=== PATIENT | male | born 1990 | race Caucasian/White ===

== ENCOUNTER 2021-03-10 13:27 | Inpatient (IN) | payer OTHER ==
[~2021-03-10] VITALS: Ht 172.7 cm; Wt 64.0 kg
[2021-03-10 15:30] VITALS: BP 113/68
[2021-03-10] MEDS: HEPARIN SODIUM,PORCINE 5,000 UNITS/ML VIAL SQ SCH ×2 (16:45→21:01)
[2021-03-10] MEDS: IBUPROFEN 800 MG TABLET PO PRN (16:45)
[2021-03-10] MEDS: OxyCODONE HCL 5 MG IR TABLET PO PRN (19:27)
[2021-03-10] MEDS: DOCUSATE SODIUM 100 MG CAPSULE PO SCH (21:00)
[2021-03-10] MEDS: SENNA 187 MG TABLET PO SCH (21:00)
[2021-03-10] MEDS: ETHYL ALCOHOL 62% ANTISEPTIC NASAL INHALANT 0.6 ML AMPUL NASAL SCH (21:01)
[2021-03-10] MEDS: FAMOTIDINE 20 MG TABLET PO SCH (21:01)
[2021-03-11] VITALS: BP 109/70
[2021-03-11] MEDS: OxyCODONE HCL 5 MG IR TABLET PO PRN ×4 (03:16→21:27)
[2021-03-11 07:00] LABS: EOSINOPHILS % (AUTO) 2.9 % (1.0-6.0); HEMATOCRIT 42.6 % (41-53); HEMOGLOBIN 15.1 g/dL (13.5-17.5); LYMPHOCYTES # (AUTO) 1.6 K/uL (1.0-4.8); LYMPHOCYTES % (AUTO) 33.1 % (22.0-44.0); MEAN CORPUSCULAR HEMOGLOBIN 30.7 pg (26.0-34.0); MEAN CORPUSCULAR HGB CONC 35.4 G/dL (31.0-37.0); MEAN CORPUSCULAR VOLUME 87 fL (80-100); MONOCYTES # (AUTO) 0.5 K/uL (0.1-1.0); MONOCYTES % (AUTO) 11.4 % (2.0-9.0); NEUTROPHILS # (AUTO) 2.4 K/uL (1.8-7.7); NEUTROPHILS % (AUTO) 51.6 % (40.0-70.0); PLATELET COUNT (AUTO) 149 K/uL (150-450); RED BLOOD CELL COUNT(AUTO) 4.91 MIL/uL (4.50-5.90)
[2021-03-11 07:20] LABS: ALANINE AMINOTRANSFERASE 17 U/L (12-78); ALBUMIN 3.6 g/dL (3.4-5.0); ALKALINE PHOSPHATASE 77 U/L (46-116); ANION GAP 4 mmol/L (8-16); ASPARTATE AMINOTRANSFERASE 15 U/L (15-37); BILIRUBIN,TOTAL 0.5 mg/dL (0.1-1.0); CALCIUM, TOTAL 9.3 mg/dL (8.8-10.5); CARBON DIOXIDE 29 mmol/L (22-29); CHLORIDE 102 mmol/L (98-107); GLOMERULAR FILTR. RATE CALC > 60 mL/min (>60); GLUCOSE,RANDOM 105 mg/dL (70-110); POTASSIUM 4.6 mmol/L (3.5-5.1); SODIUM SERUM 135 mmol/L (136-145); TOTAL PROTEIN, SERUM 7.3 g/dL (6.4-8.2); UREA NITROGEN, BLOOD 13 mg/dL (7-18)
[2021-03-11 08:25] VITALS: BP 113/61
[2021-03-11] MEDS: HEPARIN SODIUM,PORCINE 5,000 UNITS/ML VIAL SQ SCH ×3 (08:26→20:38)
[2021-03-11] MEDS: ETHYL ALCOHOL 62% ANTISEPTIC NASAL INHALANT 0.6 ML AMPUL NASAL SCH ×2 (08:26→20:38)
[2021-03-11] MEDS: FAMOTIDINE 20 MG TABLET PO SCH ×2 (08:26→20:38)
[2021-03-11] MEDS: DOCUSATE SODIUM 100 MG CAPSULE PO SCH ×2 (08:26→20:38)
[2021-03-11] MEDS: NICOTINE 7 MG/24 HOUR PATCH TD SCH (08:27)
[2021-03-11] MEDS ORDERED: SODIUM CHLORIDE 0.9% 100 ML ONE (12:24)
[2021-03-11] MEDS: CeFAZolin 2 GM/DEXTROSE 50 ML IV SCH ×2 (13:00→20:38)
[2021-03-11 16:11] VITALS: BP 123/78
[2021-03-11] MEDS: IBUPROFEN 800 MG TABLET PO PRN (16:11)
[2021-03-11] MEDS: SENNA 187 MG TABLET PO SCH (20:38)
[2021-03-11] MEDS: MELATONIN 5 MG TABLET PO PRN (20:48)
[2021-03-12] VITALS: BP 131/72
[2021-03-12] MEDS: CeFAZolin 2 GM/DEXTROSE 50 ML IV SCH ×3 (03:46→21:26)
[2021-03-12] MEDS: NICOTINE 7 MG/24 HOUR PATCH TD SCH (08:28)
[2021-03-12] MEDS: DOCUSATE SODIUM 100 MG CAPSULE PO SCH ×3 (08:28→21:22)
[2021-03-12] MEDS: FAMOTIDINE 20 MG TABLET PO SCH ×2 (08:28→21:25)
[2021-03-12] MEDS: HEPARIN SODIUM,PORCINE 5,000 UNITS/ML VIAL SQ SCH ×3 (08:28→21:25)
[2021-03-12 08:29] VITALS: BP 109/59
[2021-03-12] MEDS: OxyCODONE HCL 5 MG IR TABLET PO PRN (08:29)
[2021-03-12] MEDS: ETHYL ALCOHOL 62% ANTISEPTIC NASAL INHALANT 0.6 ML AMPUL NASAL SCH ×2 (08:29→21:26)
[2021-03-12] MEDS: IBUPROFEN 800 MG TABLET PO PRN (15:37)
[2021-03-12 16:40] VITALS: BP 110/65
[2021-03-12] MEDS: SENNA 187 MG TABLET PO SCH ×2 (21:00→21:23)
[2021-03-12] MEDS: OxyCODONE HCL 10 MG ER TABLET PO SCH (21:26)
[2021-03-13 00:57] VITALS: BP 117/68
[2021-03-13 08:02] VITALS: BP 107/69
[2021-03-13] MEDS: FAMOTIDINE 20 MG TABLET PO SCH ×2 (08:32→20:36)
[2021-03-13] MEDS: ETHYL ALCOHOL 62% ANTISEPTIC NASAL INHALANT 0.6 ML AMPUL NASAL SCH ×2 (08:32→20:36)
[2021-03-13] MEDS: DOCUSATE SODIUM 100 MG CAPSULE PO SCH ×2 (08:32→20:36)
[2021-03-13] MEDS: HEPARIN SODIUM,PORCINE 5,000 UNITS/ML VIAL SQ SCH ×3 (08:32→20:36)
[2021-03-13] MEDS: OxyCODONE HCL 10 MG ER TABLET PO SCH ×2 (08:36→20:46)
[2021-03-13] MEDS: NICOTINE 7 MG/24 HOUR PATCH TD SCH (09:00)
[2021-03-13 15:20] VITALS: BP 109/60
[2021-03-13] MEDS: IBUPROFEN 800 MG TABLET PO PRN (15:20)
[2021-03-13] MEDS: SENNA 187 MG TABLET PO SCH (20:36)
[2021-03-14 00:17] VITALS: BP 112/54
[2021-03-14] MEDS ORDERED: OXYC10TA59 PO (02:03)
[2021-03-14] MEDS ORDERED: NICO-800 TD (02:03)
[2021-03-14] MEDS ORDERED: FAMO20 PO (02:03)
[2021-03-14] MEDS ORDERED: SENN8.6T90 PO (02:03)
[2021-03-14] MEDS ORDERED: DOCU-270 PO (02:03)
[2021-03-14 08:05] VITALS: BP 122/71
[2021-03-14] MEDS: OxyCODONE HCL 10 MG ER TABLET PO SCH ×3 (08:20→20:12)
[2021-03-14] MEDS: DOCUSATE SODIUM 100 MG CAPSULE PO SCH ×2 (08:20→20:11)
[2021-03-14] MEDS: ETHYL ALCOHOL 62% ANTISEPTIC NASAL INHALANT 0.6 ML AMPUL NASAL SCH ×2 (08:20→20:11)
[2021-03-14] MEDS: HEPARIN SODIUM,PORCINE 5,000 UNITS/ML VIAL SQ SCH (08:20)
[2021-03-14] MEDS: FAMOTIDINE 20 MG TABLET PO SCH ×2 (08:20→20:12)
[2021-03-14] MEDS: NICOTINE 7 MG/24 HOUR PATCH TD SCH (08:21)
[2021-03-14 16:32] VITALS: BP 116/59
[2021-03-14] MEDS: SENNA 187 MG TABLET PO SCH (20:11)
[2021-03-14] MEDS: MELATONIN 5 MG TABLET PO PRN (20:12)
[2021-03-15] VITALS: BP 112/58
[2021-03-15] MEDS: ETHYL ALCOHOL 62% ANTISEPTIC NASAL INHALANT 0.6 ML AMPUL NASAL SCH ×2 (09:00→21:29)
[2021-03-15] MEDS: OxyCODONE HCL 10 MG ER TABLET PO SCH ×2 (09:00→21:28)
[2021-03-15] MEDS: DOCUSATE SODIUM 100 MG CAPSULE PO SCH ×2 (09:00→21:29)
[2021-03-15] MEDS: FAMOTIDINE 20 MG TABLET PO SCH ×2 (09:00→21:29)
[2021-03-15] MEDS: NICOTINE 7 MG/24 HOUR PATCH TD SCH (09:00)
[2021-03-15 21:28] VITALS: BP 119/68
[2021-03-15] MEDS: SENNA 187 MG TABLET PO SCH (21:29)
[2021-03-16 00:12] VITALS: BP 129/73
[2021-03-16] MEDS: OxyCODONE HCL 5 MG IR TABLET PO PRN ×3 (00:12→19:55)
[2021-03-16] MEDS: MELATONIN 5 MG TABLET PO PRN ×2 (00:12→23:56)
[2021-03-16] MEDS: DOCUSATE SODIUM 100 MG CAPSULE PO SCH ×2 (07:58→21:25)
[2021-03-16] MEDS: FAMOTIDINE 20 MG TABLET PO SCH ×2 (07:58→21:25)
[2021-03-16] MEDS: ASPIRIN 325 MG TABLET PO SCH (07:58)
[2021-03-16] MEDS: OxyCODONE HCL 10 MG ER TABLET PO SCH ×2 (07:58→21:25)
[2021-03-16] MEDS: NICOTINE 7 MG/24 HOUR PATCH TD SCH (07:59)
[2021-03-16] MEDS: ETHYL ALCOHOL 62% ANTISEPTIC NASAL INHALANT 0.6 ML AMPUL NASAL SCH ×2 (07:59→21:24)
[2021-03-16 09:14] VITALS: BP 102/71
[2021-03-16] MEDS: ACETAMINOPHEN 325 MG TABLET PO PRN (13:00)
[2021-03-16 15:50] VITALS: BP 123/77
[2021-03-16] MEDS: OxyCODONE HCL 10 MG IR TABLET PO PRN ×2 (17:11→23:55)
[2021-03-16] MEDS: SENNA 187 MG TABLET PO SCH (21:25)
[2021-03-17 00:01] VITALS: BP 135/80
[2021-03-17] MEDS: OxyCODONE HCL 5 MG IR TABLET PO PRN (03:58)
[2021-03-17] MEDS: ACETAMINOPHEN 325 MG TABLET PO PRN (06:00)
[2021-03-17 06:19] LABS: BASOPHILS % (AUTO) 0.6 % (0.0-2.0); EOSINOPHILS % (AUTO) 2.6 % (1.0-6.0); HEMATOCRIT 40.4 % (41-53); HEMOGLOBIN 13.7 g/dL (13.5-17.5); LYMPHOCYTES # (AUTO) 1.8 K/uL (1.0-4.8); LYMPHOCYTES % (AUTO) 24.3 % (22.0-44.0); MEAN CORPUSCULAR VOLUME 88 fL (80-100); MONOCYTES % (AUTO) 13.5 % (2.0-9.0); NEUTROPHILS # (AUTO) 4.4 K/uL (1.8-7.7); PLATELET COUNT (AUTO) 190 K/uL (150-450); RED BLOOD CELL COUNT(AUTO) 4.57 MIL/uL (4.50-5.90); RED CELL DISTRIBUTION WIDTH 14.4 % (11.5-14.5)
[2021-03-17 06:23] LABS: ANION GAP 7 mmol/L (8-16); CALCIUM, TOTAL 9.5 mg/dL (8.8-10.5); CARBON DIOXIDE 29 mmol/L (22-29); CHLORIDE 104 mmol/L (98-107); CREATININE 0.92 mg/dL (0.60-1.30); GLOMERULAR FILTR. RATE CALC > 60 mL/min (>60); GLUCOSE,RANDOM 107 mg/dL (70-110); POTASSIUM 4.1 mmol/L (3.5-5.1); SODIUM SERUM 140 mmol/L (136-145); UREA NITROGEN, BLOOD 11 mg/dL (7-18)
[2021-03-17] MEDS: NICOTINE 7 MG/24 HOUR PATCH TD SCH (08:05)
[2021-03-17] MEDS: DOCUSATE SODIUM 100 MG CAPSULE PO SCH (08:06)
[2021-03-17] MEDS: FAMOTIDINE 20 MG TABLET PO SCH ×2 (08:06→22:10)
[2021-03-17] MEDS: OxyCODONE HCL 10 MG ER TABLET PO SCH ×2 (08:06→22:10)
[2021-03-17] MEDS: ASPIRIN 325 MG TABLET PO SCH (08:06)
[2021-03-17] MEDS: ETHYL ALCOHOL 62% ANTISEPTIC NASAL INHALANT 0.6 ML AMPUL NASAL SCH ×2 (08:08→22:10)
[2021-03-17 09:00] VITALS: BP 108/67
[2021-03-17] MEDS: OxyCODONE HCL 10 MG IR TABLET PO PRN ×2 (11:12→19:53)
[2021-03-17] MEDS ORDERED: OxyCODONE HCL 5 MG IR TABLET PO PRN (11:15)
[2021-03-17] MEDS ORDERED: NALOXONE HCL 0.4 MG/ML VIAL IVP PRN (12:45)
[2021-03-17] MEDS: ONDANSETRON HCL 4 MG TABLET PO PRN ×2 (13:15→22:10)
[2021-03-17 16:02] VITALS: BP 130/75
[2021-03-17] MEDS: SENNA 187 MG TABLET PO SCH (22:10)
[2021-03-17] MEDS: DOCUSATE SODIUM 250 MG CAPSULE PO SCH (22:10)
[2021-03-18 01:16] VITALS: BP 142/87
[2021-03-18] MEDS: OxyCODONE HCL 10 MG IR TABLET PO PRN ×2 (01:30→08:47)
[2021-03-18 08:30] VITALS: BP 129/65
[2021-03-18] MEDS: ETHYL ALCOHOL 62% ANTISEPTIC NASAL INHALANT 0.6 ML AMPUL NASAL SCH ×2 (08:47→20:22)
[2021-03-18] MEDS: FAMOTIDINE 20 MG TABLET PO SCH ×2 (08:48→20:22)
[2021-03-18] MEDS: ASPIRIN 325 MG TABLET PO SCH (08:48)
[2021-03-18] MEDS: DOCUSATE SODIUM 250 MG CAPSULE PO SCH ×2 (08:48→20:22)
[2021-03-18] MEDS: NICOTINE 7 MG/24 HOUR PATCH TD SCH (08:54)
[2021-03-18] MEDS: OxyCODONE HCL 10 MG ER TABLET PO SCH ×2 (10:29→20:22)
[2021-03-18] MEDS: ONDANSETRON HCL 4 MG TABLET PO PRN (11:34)
[2021-03-18 18:01] VITALS: BP 126/75
[2021-03-18] MEDS: SENNA 187 MG TABLET PO SCH (20:24)
[2021-03-18] MEDS ORDERED: SENNA 187 MG TABLET PO SCH (21:00)
[2021-03-18] MEDS: MELATONIN 5 MG TABLET PO PRN (23:39)
[2021-03-19] VITALS: BP 124/67
[2021-03-19] MEDS: DOCUSATE SODIUM 250 MG CAPSULE PO SCH ×2 (08:26→21:00)
[2021-03-19] MEDS: OxyCODONE HCL 10 MG ER TABLET PO SCH ×2 (08:26→21:41)
[2021-03-19] MEDS: NICOTINE 7 MG/24 HOUR PATCH TD SCH (08:26)
[2021-03-19] MEDS: ASPIRIN 325 MG TABLET PO SCH (08:26)
[2021-03-19] MEDS: ETHYL ALCOHOL 62% ANTISEPTIC NASAL INHALANT 0.6 ML AMPUL NASAL SCH ×2 (08:29→21:42)
[2021-03-19] MEDS: FAMOTIDINE 20 MG TABLET PO SCH ×2 (08:29→21:41)
[2021-03-19 10:00] VITALS: BP 117/65
[2021-03-19 16:30] VITALS: BP 125/74
[2021-03-19] MEDS: ACETAMINOPHEN 325 MG TABLET PO PRN (19:44)
[2021-03-19] MEDS: SENNA 187 MG TABLET PO SCH (21:00)
[2021-03-19] MEDS: MELATONIN 5 MG TABLET PO PRN (21:41)
[2021-03-20 05:25] VITALS: BP 95/57
[2021-03-20] MEDS: DOCUSATE SODIUM 250 MG CAPSULE PO SCH ×3 (09:00→20:43)
[2021-03-20] MEDS: NICOTINE 7 MG/24 HOUR PATCH TD SCH (09:00)
[2021-03-20 09:15] VITALS: BP 115/63
[2021-03-20] MEDS: ASPIRIN 325 MG TABLET PO SCH (09:50)
[2021-03-20] MEDS: OxyCODONE HCL 10 MG ER TABLET PO SCH ×2 (09:51→20:31)
[2021-03-20] MEDS: FAMOTIDINE 20 MG TABLET PO SCH ×2 (09:51→20:32)
[2021-03-20] MEDS: ETHYL ALCOHOL 62% ANTISEPTIC NASAL INHALANT 0.6 ML AMPUL NASAL SCH ×2 (09:51→20:31)
[2021-03-20] MEDS: ACETAMINOPHEN 325 MG TABLET PO PRN (15:28)
[2021-03-20 16:01] VITALS: BP 118/62
[2021-03-20 16:28] VITALS: BP 109/53
[2021-03-20] MEDS: SENNA 187 MG TABLET PO SCH ×2 (20:32→20:43)
[2021-03-20] MEDS: MELATONIN 5 MG TABLET PO PRN (23:14)
[2021-03-20 23:58] VITALS: BP 115/71
[2021-03-21 00:32] VITALS: BP 115/71
[2021-03-21] MEDS: NICOTINE 7 MG/24 HOUR PATCH TD SCH (08:09)
[2021-03-21] MEDS: ASPIRIN 325 MG TABLET PO SCH (08:10)
[2021-03-21] MEDS: FAMOTIDINE 20 MG TABLET PO SCH ×2 (08:11→20:48)
[2021-03-21] MEDS: DOCUSATE SODIUM 250 MG CAPSULE PO SCH ×2 (08:11→20:47)
[2021-03-21] MEDS: OxyCODONE HCL 10 MG ER TABLET PO SCH ×2 (08:11→20:48)
[2021-03-21] MEDS: ETHYL ALCOHOL 62% ANTISEPTIC NASAL INHALANT 0.6 ML AMPUL NASAL SCH ×2 (08:12→20:47)
[2021-03-21 09:30] VITALS: BP 127/76
[2021-03-21] MEDS: ACETAMINOPHEN 325 MG TABLET PO PRN (15:39)
[2021-03-21 16:20] VITALS: BP 120/57
[2021-03-21] MEDS: SENNA 187 MG TABLET PO SCH (20:47)
[2021-03-21] MEDS: MELATONIN 5 MG TABLET PO PRN (23:14)
[2021-03-22] VITALS: BP 135/73
[2021-03-22] MEDS: ASPIRIN 325 MG TABLET PO SCH (08:34)
[2021-03-22] MEDS: NICOTINE 7 MG/24 HOUR PATCH TD SCH (08:34)
[2021-03-22] MEDS: DOCUSATE SODIUM 250 MG CAPSULE PO SCH ×3 (08:34→20:33)
[2021-03-22] MEDS: FAMOTIDINE 20 MG TABLET PO SCH ×2 (08:35→20:33)
[2021-03-22] MEDS: ETHYL ALCOHOL 62% ANTISEPTIC NASAL INHALANT 0.6 ML AMPUL NASAL SCH ×2 (08:35→20:32)
[2021-03-22] MEDS: OxyCODONE HCL 10 MG ER TABLET PO SCH ×2 (08:35→20:33)
[2021-03-22 10:00] VITALS: BP 111/70
[2021-03-22 16:00] VITALS: BP 128/76
[2021-03-22] MEDS: SENNA 187 MG TABLET PO SCH ×2 (20:33→20:37)
[2021-03-22] MEDS: MELATONIN 5 MG TABLET PO PRN (22:05)
[2021-03-23 04:23] VITALS: BP 123/64
[2021-03-23 08:02] VITALS: BP 95/48
[2021-03-23] MEDS: FAMOTIDINE 20 MG TABLET PO SCH ×2 (08:26→21:31)
[2021-03-23] MEDS: ASPIRIN 325 MG TABLET PO SCH (08:26)
[2021-03-23] MEDS: OxyCODONE HCL 10 MG ER TABLET PO SCH ×2 (08:26→21:31)
[2021-03-23] MEDS: DOCUSATE SODIUM 250 MG CAPSULE PO SCH ×2 (08:26→21:31)
[2021-03-23] MEDS: NICOTINE 7 MG/24 HOUR PATCH TD SCH (08:27)
[2021-03-23] MEDS: ETHYL ALCOHOL 62% ANTISEPTIC NASAL INHALANT 0.6 ML AMPUL NASAL SCH ×2 (08:29→21:31)
[2021-03-23] MEDS: OxyCODONE HCL 10 MG IR TABLET PO PRN (14:21)
[2021-03-23 14:56] VITALS: BP 120/79
[2021-03-23] MEDS: SENNA 187 MG TABLET PO SCH (21:00)
[2021-03-24 06:00] VITALS: BP 114/62
[2021-03-24] MEDS: ASPIRIN 325 MG TABLET PO SCH (08:17)
[2021-03-24] MEDS: OxyCODONE HCL 10 MG ER TABLET PO SCH ×2 (08:17→21:08)
[2021-03-24] MEDS: DOCUSATE SODIUM 250 MG CAPSULE PO SCH ×2 (08:17→21:09)
[2021-03-24] MEDS: ETHYL ALCOHOL 62% ANTISEPTIC NASAL INHALANT 0.6 ML AMPUL NASAL SCH ×2 (08:17→21:09)
[2021-03-24] MEDS: FAMOTIDINE 20 MG TABLET PO SCH ×2 (08:18→21:07)
[2021-03-24] MEDS: NICOTINE 7 MG/24 HOUR PATCH TD SCH (08:22)
[2021-03-24 08:30] VITALS: BP 107/62
[2021-03-24 16:00] VITALS: BP 126/73
[2021-03-24] MEDS: SENNA 187 MG TABLET PO SCH (21:00)
[2021-03-25] MEDS: ETHYL ALCOHOL 62% ANTISEPTIC NASAL INHALANT 0.6 ML AMPUL NASAL SCH ×2 (07:49→19:55)
[2021-03-25] MEDS: ASPIRIN 325 MG TABLET PO SCH (07:49)
[2021-03-25] MEDS: FAMOTIDINE 20 MG TABLET PO SCH ×2 (07:50→19:55)
[2021-03-25] MEDS: OxyCODONE HCL 10 MG ER TABLET PO SCH ×2 (07:54→19:56)
[2021-03-25] MEDS: DOCUSATE SODIUM 250 MG CAPSULE PO SCH ×2 (07:54→19:56)
[2021-03-25] MEDS: NICOTINE 7 MG/24 HOUR PATCH TD SCH (07:55)
[2021-03-25 08:00] VITALS: BP 126/57
[2021-03-25 17:00] VITALS: BP 124/79
[2021-03-25] MEDS: SENNA 187 MG TABLET PO SCH (19:56)
[2021-03-25] MEDS: ACETAMINOPHEN 325 MG TABLET PO PRN (21:43)
[2021-03-25] MEDS: MELATONIN 5 MG TABLET PO PRN (21:59)
[2021-03-26] VITALS: BP 110/58
[2021-03-26 08:15] VITALS: BP 121/70
[2021-03-26] MEDS: ETHYL ALCOHOL 62% ANTISEPTIC NASAL INHALANT 0.6 ML AMPUL NASAL SCH ×2 (08:34→21:36)
[2021-03-26] MEDS: ASPIRIN 325 MG TABLET PO SCH (08:35)
[2021-03-26] MEDS: NICOTINE 7 MG/24 HOUR PATCH TD SCH (08:35)
[2021-03-26] MEDS: DOCUSATE SODIUM 250 MG CAPSULE PO SCH ×3 (08:35→21:36)
[2021-03-26] MEDS: FAMOTIDINE 20 MG TABLET PO SCH ×2 (08:35→21:36)
[2021-03-26 16:07] VITALS: BP 126/92
[2021-03-26] MEDS: SENNA 187 MG TABLET PO SCH ×2 (21:00→21:36)
[2021-03-26] MEDS: MELATONIN 5 MG TABLET PO PRN (21:36)
[2021-03-27] VITALS: BP 115/85
[2021-03-27 08:30] VITALS: BP 110/68
[2021-03-27] MEDS: DOCUSATE SODIUM 250 MG CAPSULE PO SCH (09:00)
[2021-03-27] MEDS: FAMOTIDINE 20 MG TABLET PO SCH ×2 (09:28→20:09)
[2021-03-27] MEDS: ASPIRIN 325 MG TABLET PO SCH (09:29)
[2021-03-27] MEDS: ETHYL ALCOHOL 62% ANTISEPTIC NASAL INHALANT 0.6 ML AMPUL NASAL SCH ×2 (09:29→20:08)
[2021-03-27] MEDS ORDERED: SENNA 187 MG TABLET PO PRN (10:15)
[2021-03-27] MEDS ORDERED: DOCUSATE SODIUM 250 MG CAPSULE PO PRN (10:15)
[2021-03-27 15:00] VITALS: BP 127/80
[2021-03-27 22:55] VITALS: BP 134/83
[2021-03-27] MEDS: ACETAMINOPHEN 325 MG TABLET PO PRN (22:55)
[2021-03-28] MEDS ORDERED: ASPI-989 PO (00:52)
[2021-03-28] MEDS: ASPIRIN 325 MG TABLET PO SCH (08:05)
[2021-03-28] MEDS: ETHYL ALCOHOL 62% ANTISEPTIC NASAL INHALANT 0.6 ML AMPUL NASAL SCH ×2 (08:05→21:26)
[2021-03-28] MEDS: FAMOTIDINE 20 MG TABLET PO SCH ×2 (08:05→21:26)
[2021-03-28 08:15] VITALS: BP 121/70
[2021-03-28] MEDS: ACETAMINOPHEN 325 MG TABLET PO PRN ×2 (12:18→21:32)
[2021-03-28 16:00] VITALS: BP 133/75
[2021-03-29 00:38] VITALS: BP 124/70
[2021-03-29 08:26] VITALS: BP 139/66
[2021-03-29] MEDS: FAMOTIDINE 20 MG TABLET PO SCH (09:27)
[2021-03-29] MEDS: ETHYL ALCOHOL 62% ANTISEPTIC NASAL INHALANT 0.6 ML AMPUL NASAL SCH (09:27)
[2021-03-29] MEDS: ASPIRIN 325 MG TABLET PO SCH (09:27)
== END 2021-03-29 14:00 | disposition home or self-care (01) | DRG 563 ==
LOC: 2WR 13:33
PROVIDERS: ADMIT Physical Medicine & Rehabilitation; ATTEND Physical Medicine & Rehabilitation
DX: S92.902A Unspecified fracture of left foot, initial encounter for closed fracture (principal); E87.1 Hypo-osmolality and hyponatremia; K21.9 Gastro-esophageal reflux disease without esophagitis; G47.00 Insomnia, unspecified; K59.03 Drug induced constipation; T40.2X5A Adverse effect of other opioids, initial encounter; Z91.018 Allergy to other foods; Y92.89 Other specified places as the place of occurrence of the external cause; V89.2XXA Person injured in unspecified motor-vehicle accident, traffic, initial encounter; Y93.89 Activity, other specified; Y99.8 Other external cause status
CPT/HCPCS: 80048; 80053; 85025; 87081; 97110; 97116; 97140; 97163; 97166; 97530; 97535; 99366; J0690; J1644; J7050; Q0162; Q9967